=== PATIENT | male | born 1935 | race Caucasian/White ===

== ENCOUNTER → 2017-11-30 | Outpatient (CLI) | payer MEDICARE ==
[~2017-11-30] MED LIST: ATEN50; CLON.1 PO; COLC.6; FLUNOI; FURO40; LISI20; MOMENI; POTA8; RABE20; SIMV40; WARF10; WARF7.5
== END ==
LOC: LAB SHORT 16:53 → LAB 16:53
DX: L82.1 Other seborrheic keratosis (principal); L08.9 Local infection of the skin and subcutaneous tissue, unspecified
CPT/HCPCS: 87070; 87205

== ENCOUNTER 2020-03-25 13:13 | Inpatient (IN) | payer OTHER, MEDICARE ==
[~2020-03-25] VITALS: Ht 175.3 cm; Wt 106.4 kg
[~2020-03-25 13:13] MED LIST changes: -SIMV40; +SIMV40 PO
[2020-03-25] MEDS ORDERED: JANTOVEN5 MG PO (13:24)
[2020-03-25] MEDS ORDERED: WARF1 PO (13:25)
[2020-03-25] MEDS ORDERED: ROPINIROLE HCL0.5 MG PO (13:25)
[2020-03-25] MEDS ORDERED: ROPINIROLE HCL2 M1 PO (13:25)
[2020-03-25 13:30] LABS: Calcium, Ionized (POC) 1.14 mmol/L (1.10-1.46); Chloride (POC) 106 mmol/L (98-108); Creatinine (POC) 1.1 mg/dL (0.8-1.3); Glucose (ISTAT POC) 143 mg/dL (70-99); Hemoglobin (POC) 13.9 g/dL (13.5-17.5); Potassium (POC) 3.5 mmol/L (3.5-5.5); Sodium (POC) 139 mmol/L (135-148); Total CO2 (POC) 22 mmol/L (21-32)
[2020-03-25 13:39] LABS: BASOPHILS ABSOLUTE AUTO 0.05 K/mm3 (0.00-0.23); BASOPHILS PERCENT AUTO 1 % (0-2); EOSINOPHILS ABSOLUTE AUTO 0.05 K/mm3 (0.00-0.68); EOSINOPHILS PERCENT AUTO 1 % (0-6); Hematocrit 45.2 % (37.0-53.0); Hemoglobin 14.6 g/dL (13.5-17.5); IMMATURE GRAN ABSOLUTE AUTO 0.02 K/mm3 (0.00-0.10); IMMATURE GRAN PERCENT AUTO 0 % (0-1); LYMPHOCYTES ABSOLUTE AUTO 2.91 K/mm3 (0.84-5.20); LYMPHOCYTES PERCENT AUTO 35 % (21-46); MONOCYTES ABSOLUTE AUTO 1.11 K/mm3 (0.16-1.47); MONOCYTES PERCENT AUTO 13 % (4-13); Mean Corpuscular HGB 30.1 pg (26.0-34.0); Mean Corpuscular HGB Conc 32.3 g/dL (31.5-36.5); Mean Corpuscular Volume 93 fL (80-100); Mean Platelet Volume 10.5 fL (9.1-12.4); NEUTROPHILS ABSOLUTE AUTO 4.29 K/mm3 (1.96-9.15); NEUTROPHILS PERCENT AUTO 51 % (41-73); Platelet Count 203 K/mm3 (150-400); RDW Coefficient Variation 14.6 % (11.7-14.2); RDW Standard Deviation 50.4 fL (35.1-46.3); Red Blood Cell Count 4.85 M/mm3 (4.30-5.90); White Blood Cell Count 8.43 K/mm3 (4.00-11.30)
[2020-03-25] MEDS ORDERED: FURO20 PO (14:03)
[2020-03-25] MEDS ORDERED: ALLO300 PO (14:03)
[2020-03-25] MEDS ORDERED: EUTHYROX50 MCG PO (14:03)
[2020-03-25] MEDS ORDERED: OLME20 PO (14:03)
[2020-03-25] MEDS ORDERED: TAMS.4ER PO (14:04)
[2020-03-25] MEDS ORDERED: AMLO5 PO (14:04)
[2020-03-25 14:22] LABS: Influenza A, PCR Negative (NEGATIVE); Influenza B, PCR Negative (NEGATIVE); Resp Syncytial Virus, PCR Negative (NEGATIVE); SARS-Cov-2 (COVID-19) PCR, MMC Negative (NEGATIVE)
[2020-03-25 14:47] LABS: Albumin, Blood 3.5 g/dL (3.4-5.0); Albumin/Globulin Ratio 0.9 (0.8-1.8); Bun/Creatinine Ratio 21.8 (12.0-20.0); Calcium, Blood 8.8 mg/dL (8.5-10.1); Creatinine, Blood 1.33 mg/dL (0.60-1.20); Potassium, Blood 3.8 mmol/L (3.5-5.5); Total Protein, Blood 7.5 g/dL (6.4-8.2); Troponin I 0.044 ng/mL (0.000-0.040)
[2020-03-25 15:29] LABS: International Normalized Ratio 2.08; Prothrombin Time Results 21.4 Sec (9.7-11.5)
[2020-03-25] MEDS ORDERED: POTA10T PO (16:16)
--- NOTE | 2020-03-25 16:57 | NUR ---
Echocardiogram completed.
--- NOTE | 2020-03-25 17:34 | NUR ---
TRANSPORT TO ICU 1 PT ARRIVED TO ICU 1 AT 1455 FROM BOOK REVIEWER S/P STENT PLACEMENT FOR ADMIT WITH NSTEMI. PT DENIED ANY NAUSEA, PAIN, SHORTNESS OF BREATH. TR BAND ON RIGHT WRIST INFLATED WITH 14ML OF AIR; SITE IS WNL. PT IS ALERT AND ORIENTED AND CAN MAKE NEEDS KNOWN. AT BEDSIDE. HR 50-60'S; PT AND STATED THAT HE IS BRADYCARDIC AT BASELINE. DR MARQUEZ AND DR MUSE IN TO SEE PT. POST CATH EKG AND ECHO COMPLETED. TR BAND SITE CHECKED Q15MIN, SITE REMAINED WNL/CLEAR T/O SHIFT. REMOVING AIR FROM TR BAND NOW.
--- NOTE | 2020-03-25 18:53 | NUR ---
END OF SHIFT SUMMARY PT CONT TO BE ALERT AND ORIENTED AND IS ABLE TO MAKE NEEDS KNOWN. O2 SAT >94% ON RA. RIGHT RADIAL SITE IS WNL; THEIR IS NO AIR LEFT IN THE TR BAND, TO BE REMOVED IN AN HOUR. HR 50-60'S; PT STATES BEING BRADICARDIC AT BASELINE. BP STABLE. PT USES URINAL APPROPRIATLY. AFIBRILE. WILL REPORT TO PM RN WHEN AVAILABLE.
--- NOTE | 2020-03-25 21:09 | NUR ---
CARE ASSUMED 1900 PT A/O X 4. ABLE TO MAKE NEEDS KNOWN. PT APPEARS ANXIOUS/COOPERATIVE AND STATES THE BED IS UNCOMFORTABLE. SAT WITH PT TO DISCUSS HIS CONCERNS. PT WOULD LIKE MEDICATION TO HELP WITH SLEEP AND WOULD LIKE TO SPEAK TO HIS . CALL PLACED TO MELANIA DUTTA AND ORDERS RECIEVED FOR MELATONIN, ALBUTEROL, AND CPAP. PT STATES HAVING OCCASIONAL SOB DUE TO HIS ANXIETY AND WOULD LIKE TO USE ALBUTEROL IN CASE HE NEEDS IT. ALSO, PT USES CPAP TO SLEEP AT NIGHT. PT DENIES CP. TR BAND REMOVED FROM RIGHT WRIST AT 2042 AND CLEAR OPSITE DRESSING APPLIED, SITE C/D/I. WRIST IMMOBILIZER REMAINS IN PLACE. VSS, PT ON RA AND IN AFIB. PT RESTING IN BED WITH CPAP ON AND DID NOT WANT ALBUTEROL UPDRAFT DUE TO FEELING LESS ANXIOUS AFTER SPEAKING TO THIS NURSE FOR 30 + MINUTES ABOUT HIS CONCERNS. ALSO, PT SPOKE TO HIS VIA PHONE. ALL QUESTIONS/CONCERNS ADDRESSED.
[2020-03-26 05:02] LABS: Hematocrit 42.2 % (37.0-53.0); Hemoglobin 13.6 g/dL (13.5-17.5); Mean Corpuscular HGB 29.8 pg (26.0-34.0); Mean Corpuscular HGB Conc 32.2 g/dL (31.5-36.5); Mean Corpuscular Volume 93 fL (80-100); Mean Platelet Volume 10.6 fL (9.1-12.4); Platelet Count 213 K/mm3 (150-400); RDW Coefficient Variation 14.6 % (11.7-14.2); RDW Standard Deviation 50.4 fL (35.1-46.3); Red Blood Cell Count 4.56 M/mm3 (4.30-5.90); White Blood Cell Count 10.41 K/mm3 (4.00-11.30)
[2020-03-26 05:27] LABS: Anion Gap 5 mmol/L (6-16); Blood Urea Nitrogen 23 mg/dL (8-24); Bun/Creatinine Ratio 26.9 (12.0-20.0); CHOL/HDL RATIO 3.3; CO2, Blood 27 mmol/L (21-32); Calcium, Blood 8.8 mg/dL (8.5-10.1); Chloride, Blood 106 mmol/L (98-108); Cholesterol 147 mg/dL (50-200); Creatinine, Blood 0.86 mg/dL (0.60-1.20); Glomerular Filtration Rate >60 (60-); Glucose, Blood 123 mg/dL (70-99); HDL Cholesterol 45 mg/dL (>39); LDL/HDL RATIO 1.6; Low Density Lipoprotein Chol 73 mg/dL (0-110); Potassium, Blood 4.1 mmol/L (3.5-5.5); Sodium, Blood 138 mmol/L (136-145); Triglycerides 147 mg/dL (30-160); Very Low Density Lipoprot Chol 29 mg/dL (6-32)
[2020-03-26 05:30] LABS: International Normalized Ratio 1.76; Prothrombin Time Results 18.2 Sec (9.7-11.5)
--- NOTE | 2020-03-26 07:31 | NUR ---
SHIFT SUMMARY PT REMAINS A/O X 4. ABLE TO MAKE HIS NEEDS EASILY KNOWN. PT USED CPAP T/O THE NIGHT AND HR WOULD DECREASE TO 35 TO 40'S, SBP > 120'S. VSS T/O NIGHT. PT REMAINS IN AFIB. LUNG SOUNDS CLEAR AND BOWEL TONES ACTIVE. PT COMPLAINED OF BURNING WITH URINATION THAT HAS DECREASED T/O THE SHIFT. PT CUT HIS URETHRA WHILE USING THE URINAL AND A "PAPER CUT" SIZE CUT IS NOTED. PT IS NOT ACTIVELY BLEEDING FROM SITE BUT BLOOD IS PRESENT WHEN WIPING THE AREA. PT DENIES PAIN AT BASELINE BUT HAS PAIN WITH URINATION. PT REQUIRED THE USE OF ALBUTEROL UPDRAFT DUE TO "FEELING ANXIOUS AND FEELING SHORT OF BREATH," WITH GOOD EFFECT. PT WAS ABLE TO SITUP IN CHAIR FOR 1 HOUR TONIGHT AND STATES THE BED IS UNCOMFORTABLE. PT REUIQRED TWO PERSON ASSIST BUT DENIES CP OR SOB WHILE STANDING. WILL REPORT TO ONCOMING SHIFT.
[2020-03-26] MEDS ORDERED: ATOR80 PO (12:51)
[2020-03-26] MEDS ORDERED: ASPI81CH PO (12:51)
[2020-03-26] MEDS ORDERED: CLOP75 PO (12:52)
[2020-03-26] MEDS ORDERED: PANTOPRAZOLE SO20 M1 PO (12:52)
[2020-03-26] MEDS ORDERED: METF500 PO (12:53)
--- NOTE | 2020-03-26 14:45 | NUR ---
PT OUT OF ROOM VIA WHEELCHAIR, WITH , AND INFORMATION CLERK CASHIER STUDENT+INFORMATION CLERK CASHIER, @ ~2357
== END 2020-03-26 14:35 | disposition home health service (06) | DRG 247 ==
LOC: ER 13:13 → ICUW 13:36 → ICUE 15:12
PROVIDERS: Emergency Medicine; Family Medicine; ADMIT Internal Medicine Interventional Cardiology
PROC: 027034Z Dilation of Coronary Artery, One Artery with Drug-eluting Intraluminal Device, Percutaneous Approach (ICD-10-PCS; principal; 2020-03-25)
PROC: 4A023N7 Measurement of Cardiac Sampling and Pressure, Left Heart, Percutaneous Approach (ICD-10-PCS; 2020-03-25)
PROC: B2111ZZ Fluoroscopy of Multiple Coronary Arteries using Low Osmolar Contrast (ICD-10-PCS; 2020-03-25)
PROC: B240ZZ3 Ultrasonography of Single Coronary Artery, Intravascular (ICD-10-PCS; 2020-03-25)
PROC: 5A09357 Assistance with Respiratory Ventilation, Less than 24 Consecutive Hours, Continuous Positive Airway Pressure (ICD-10-PCS; 2020-03-25)
DX: I21.4 Non-ST elevation (NSTEMI) myocardial infarction (principal); I48.20 Chronic atrial fibrillation, unspecified; Z20.828 Contact with and (suspected) exposure to other viral communicable diseases; I25.10 Atherosclerotic heart disease of native coronary artery without angina pectoris; N40.0 Benign prostatic hyperplasia without lower urinary tract symptoms; I10 Essential (primary) hypertension; M19.90 Unspecified osteoarthritis, unspecified site; E11.9 Type 2 diabetes mellitus without complications; E78.5 Hyperlipidemia, unspecified; G47.30 Sleep apnea, unspecified; J44.9 Chronic obstructive pulmonary disease, unspecified; K21.9 Gastro-esophageal reflux disease without esophagitis; G25.81 Restless legs syndrome; Z79.899 Other long term (current) drug therapy; Z79.01 Long term (current) use of anticoagulants; Z88.0 Allergy status to penicillin; Z88.1 Allergy status to other antibiotic agents; Z88.8 Allergy status to other drugs, medicaments and biological substances
CPT/HCPCS: 0241U; 36415; 76937; 80047; 80048; 80053; 80061; 82947; 84484; 85014; 85025; 85027; 85347; 85610; 85730; 92978; 93005; 93010; 93306; 93454; 94640; 94660; 97116; 97161; 97165; 99152; 99153; 99285-25; A9270; A9270-GY; C1725; C1753; C1769; C1874; C1887; C1894; C9113; C9600; J0461; J1644; J2250; J2405; J3010; J7030; J7050; Q9967

== ENCOUNTER 2020-12-04 17:53 | Emergency (ER) | payer OTHER, MEDICARE ==
[~2020-12-04] VITALS: Ht 175.3 cm; Wt 108.9 kg
[~2020-12-04 17:53] MED LIST changes: +ALLO300 PO; +AMLO5 PO; +ASPI81CH PO; +ATOR80 PO; +CLOP75 PO; +EUTHYROX50 MCG PO; +FURO20 PO; +JANTOVEN5 MG PO; +METF500 PO; +OLME20 PO; +PANTOPRAZOLE SO20 M1 PO; +POTA10T PO; +ROPINIROLE HCL0.5 MG PO; +ROPINIROLE HCL2 M1 PO; +TAMS.4ER PO; +WARF1 PO
[2020-12-04 18:30] LABS: BASOPHILS ABSOLUTE AUTO 0.04 K/mm3 (0.00-0.23); BASOPHILS PERCENT AUTO 1 % (0-2); EOSINOPHILS ABSOLUTE AUTO 0.03 K/mm3 (0.00-0.68); EOSINOPHILS PERCENT AUTO 1 % (0-6); Hematocrit 40.5 % (37.0-53.0); Hemoglobin 13.4 g/dL (13.5-17.5); IMMATURE GRAN ABSOLUTE AUTO 0.02 K/mm3 (0.00-0.10); IMMATURE GRAN PERCENT AUTO 0 % (0-1); LYMPHOCYTES ABSOLUTE AUTO 1.25 K/mm3 (0.84-5.20); LYMPHOCYTES PERCENT AUTO 21 % (21-46); MONOCYTES ABSOLUTE AUTO 0.82 K/mm3 (0.16-1.47); MONOCYTES PERCENT AUTO 14 % (4-13); Mean Corpuscular HGB 30.4 pg (26.0-34.0); Mean Corpuscular HGB Conc 33.1 g/dL (31.5-36.5); Mean Corpuscular Volume 92 fL (80-100); Mean Platelet Volume 10.2 fL (9.1-12.4); NEUTROPHILS ABSOLUTE AUTO 3.71 K/mm3 (1.96-9.15); NEUTROPHILS PERCENT AUTO 63 % (41-73); Platelet Count 208 K/mm3 (150-400); RDW Coefficient Variation 15.4 % (11.7-14.2); Red Blood Cell Count 4.41 M/mm3 (4.30-5.90); White Blood Cell Count 5.87 K/mm3 (4.00-11.30)
[2020-12-04 19:54] LABS: Alanine Aminotransfer (ALT/SGP 32 U/L (12-78); Albumin, Blood 3.7 g/dL (3.4-5.0); Alk Phos 108 U/L (50-136); Anion Gap 5 mmol/L (6-16); Aspartate Aminotrans (AST/SGOT 28 U/L (12-37); Bilirubin, Total 1.3 mg/dL (0.1-1.0); Blood Urea Nitrogen 22 mg/dL (8-24); Bun/Creatinine Ratio 19.6 (12.0-20.0); CO2, Blood 27 mmol/L (21-32); Chloride, Blood 104 mmol/L (98-108); Creatinine, Blood 1.12 mg/dL (0.60-1.20); Globulin, Blood 3.7 g/dL (2.2-4.0); Glomerular Filtration Rate >60 (60-); Glucose, Blood 118 mg/dL (70-99); Potassium, Blood 3.9 mmol/L (3.5-5.5); Sodium, Blood 136 mmol/L (136-145); Total Protein, Blood 7.4 g/dL (6.4-8.2); Troponin I <0.015 ng/mL (0.000-0.040)
== END 2020-12-04 20:58 | disposition home or self-care (01) ==
LOC: ER 17:53
PROVIDERS: Physician Assistant
DX: R07.89 Other chest pain (principal); I10 Essential (primary) hypertension; J45.909 Unspecified asthma, uncomplicated
CPT/HCPCS: 36415; 71045; 80053; 83690; 84484; 85025; 93005; 93010; 99284-25

== ENCOUNTER → 2021-03-21 | Outpatient (CLI) | payer MEDICARE ==
[2021-03-21 16:30] LABS: BASOPHILS ABSOLUTE AUTO 0.05 K/mm3 (0.00-0.23); BASOPHILS PERCENT AUTO 1 % (0-2); EOSINOPHILS ABSOLUTE AUTO 0.01 K/mm3 (0.00-0.68); EOSINOPHILS PERCENT AUTO 0 % (0-6); Hematocrit 41.5 % (37.0-53.0); Hemoglobin 13.7 g/dL (13.5-17.5); IMMATURE GRAN ABSOLUTE AUTO 0.02 K/mm3 (0.00-0.10); IMMATURE GRAN PERCENT AUTO 0 % (0-1); LYMPHOCYTES ABSOLUTE AUTO 1.15 K/mm3 (0.84-5.20); LYMPHOCYTES PERCENT AUTO 13 % (21-46); MONOCYTES ABSOLUTE AUTO 1.59 K/mm3 (0.16-1.47); MONOCYTES PERCENT AUTO 18 % (4-13); Mean Corpuscular HGB 30.5 pg (26.0-34.0); Mean Corpuscular Volume 92 fL (80-100); Mean Platelet Volume 10.4 fL (9.1-12.4); NEUTROPHILS PERCENT AUTO 68 % (41-73); Platelet Count 227 K/mm3 (150-400); RDW Coefficient Variation 14.2 % (11.7-14.2); RDW Standard Deviation 48.4 fL (35.1-46.3); Red Blood Cell Count 4.49 M/mm3 (4.30-5.90); White Blood Cell Count 8.82 K/mm3 (4.00-11.30)
== END | disposition home or self-care (01) ==
LOC: LAB SHORT 15:43 → LAB 15:43
PROVIDERS: Nurse Practitioner Family
DX: M25.532 Pain in left wrist (principal)
CPT/HCPCS: 84550; 85025

== ENCOUNTER → 2021-07-03 | Outpatient (CLI) | payer MEDICARE | LOC: LAB SHORT 18:25 | DX: N39.0 Urinary tract infection, site not specified (principal); R30.9 Painful micturition, unspecified; R31.9 Hematuria, unspecified | CPT/HCPCS: 87077; 87086; 87186 ==

== ENCOUNTER 2021-10-07 14:58 | Emergency (ER) | payer OTHER, MEDICARE ==
[~2021-10-07] VITALS: Ht 177.8 cm; Wt 104.3 kg
[2021-10-07 15:44] LABS: BASOPHILS ABSOLUTE AUTO 0.07 K/mm3 (0.00-0.23); BASOPHILS PERCENT AUTO 1 % (0-2); EOSINOPHILS ABSOLUTE AUTO 0.07 K/mm3 (0.00-0.68); EOSINOPHILS PERCENT AUTO 1 % (0-6); Hematocrit 37.3 % (37.0-53.0); Hemoglobin 12.4 g/dL (13.5-17.5); IMMATURE GRAN ABSOLUTE AUTO 0.01 K/mm3 (0.00-0.10); IMMATURE GRAN PERCENT AUTO 0 % (0-1); LYMPHOCYTES ABSOLUTE AUTO 1.73 K/mm3 (0.84-5.20); LYMPHOCYTES PERCENT AUTO 28 % (21-46); MONOCYTES ABSOLUTE AUTO 0.92 K/mm3 (0.16-1.47); MONOCYTES PERCENT AUTO 15 % (4-13); Mean Corpuscular HGB 30.8 pg (26.0-34.0); Mean Corpuscular HGB Conc 33.2 g/dL (31.5-36.5); Mean Corpuscular Volume 93 fL (80-100); Mean Platelet Volume 10.2 fL (9.1-12.4); NEUTROPHILS ABSOLUTE AUTO 3.33 K/mm3 (1.96-9.15); NEUTROPHILS PERCENT AUTO 54 % (41-73); Platelet Count 273 K/mm3 (150-400); RDW Coefficient Variation 14.3 % (11.7-14.2); RDW Standard Deviation 48.6 fL (35.1-46.3); Red Blood Cell Count 4.02 M/mm3 (4.30-5.90); White Blood Cell Count 6.13 K/mm3 (4.00-11.30)
[2021-10-07 15:59] LABS: Albumin/Globulin Ratio 0.8 (0.8-1.8); Bilirubin, Total 0.9 mg/dL (0.1-1.0); Bun/Creatinine Ratio 25.5 (12.0-20.0); Calcium, Blood 8.8 mg/dL (8.5-10.1); Creatinine, Blood 0.83 mg/dL (0.60-1.20); Globulin, Blood 3.8 g/dL (2.2-4.0); Potassium, Blood 3.8 mmol/L (3.5-5.5); Total Protein, Blood 6.8 g/dL (6.4-8.2)
[2021-10-07 16:10] LABS: Source, Urine Clean Catch
[2021-10-07 16:22] LABS: Appearance, Urine Clear (Clear); Bilirubin, Urine Neg (Neg); Blood, Urine Neg (Neg); Color, Urine Yellow (P-Yellow); Glucose Qualitative, Urine Neg (Neg); Ketones, Urine Neg (Neg); Leukocyte Esterase, Urine Neg (Neg); Nitrite, Urine Neg (Neg); Protein, Urine Neg (Neg); Urobilinogen, Urine 1+ (Normal)
== END 2021-10-07 19:24 | disposition home or self-care (01) ==
LOC: ER 14:58
PROVIDERS: Physician Assistant
DX: R26.81 Unsteadiness on feet (principal); I10 Essential (primary) hypertension; E11.9 Type 2 diabetes mellitus without complications; I25.10 Atherosclerotic heart disease of native coronary artery without angina pectoris; K21.9 Gastro-esophageal reflux disease without esophagitis; J44.9 Chronic obstructive pulmonary disease, unspecified; N40.0 Benign prostatic hyperplasia without lower urinary tract symptoms; Z79.01 Long term (current) use of anticoagulants; Z79.899 Other long term (current) drug therapy; Z79.82 Long term (current) use of aspirin; Z79.84 Long term (current) use of oral hypoglycemic drugs
CPT/HCPCS: 36415; 70450; 80053; 81003; 85025; 99285-25

== ENCOUNTER 2021-10-17 00:38 | Inpatient (IN) | payer OTHER ==
[~2021-10-17] VITALS: Ht 177.8 cm; Wt 95.2 kg
[~2021-10-17 00:38] MED LIST changes: +ALLO100 PO; -ALLO300 PO; +PANT40 PO; -PANTOPRAZOLE SO20 M1 PO
[2021-10-17 01:10] LABS: BASOPHILS ABSOLUTE AUTO 0.08 K/mm3 (0.00-0.23); BASOPHILS PERCENT AUTO 2 % (0-2); EOSINOPHILS ABSOLUTE AUTO 0.09 K/mm3 (0.00-0.68); EOSINOPHILS PERCENT AUTO 2 % (0-6); Hematocrit 36.6 % (37.0-53.0); Hemoglobin 12.2 g/dL (13.5-17.5); IMMATURE GRAN ABSOLUTE AUTO 0.01 K/mm3 (0.00-0.10); IMMATURE GRAN PERCENT AUTO 0 % (0-1); LYMPHOCYTES ABSOLUTE AUTO 1.69 K/mm3 (0.84-5.20); LYMPHOCYTES PERCENT AUTO 32 % (21-46); MONOCYTES ABSOLUTE AUTO 0.85 K/mm3 (0.16-1.47); MONOCYTES PERCENT AUTO 16 % (4-13); Mean Corpuscular HGB 30.8 pg (26.0-34.0); Mean Corpuscular HGB Conc 33.3 g/dL (31.5-36.5); Mean Corpuscular Volume 92 fL (80-100); Mean Platelet Volume 10.1 fL (9.1-12.4); NEUTROPHILS ABSOLUTE AUTO 2.57 K/mm3 (1.96-9.15); NEUTROPHILS PERCENT AUTO 49 % (41-73); Platelet Count 216 K/mm3 (150-400); RDW Coefficient Variation 14.1 % (11.7-14.2); RDW Standard Deviation 48.1 fL (35.1-46.3); Red Blood Cell Count 3.96 M/mm3 (4.30-5.90); White Blood Cell Count 5.29 K/mm3 (4.00-11.30)
[2021-10-17 01:32] LABS: Albumin, Blood 3.1 g/dL (3.4-5.0); Albumin/Globulin Ratio 0.9 (0.8-1.8); Bilirubin, Total 0.9 mg/dL (0.1-1.0); Bun/Creatinine Ratio 24.6 (12.0-20.0); Calcium, Blood 8.9 mg/dL (8.5-10.1); Creatinine, Blood 0.85 mg/dL (0.60-1.20); Globulin, Blood 3.5 g/dL (2.2-4.0); Potassium, Blood 3.3 mmol/L (3.5-5.5); Total Protein, Blood 6.6 g/dL (6.4-8.2)
[2021-10-17 01:40] LABS: Source, Urine Clean Catch
[2021-10-17 01:42] LABS: Bilirubin, Urine Neg (Neg); Blood, Urine Neg (Neg); Glucose Qualitative, Urine Neg (Neg); Ketones, Urine Neg (Neg); Leukocyte Esterase, Urine Neg (Neg); Nitrite, Urine Neg (Neg); Protein, Urine Neg (Neg); Urobilinogen, Urine NORM (Normal)
[2021-10-17 01:43] LABS: Appearance, Urine Clear (Clear); Color, Urine Pale Yellow (P-Yellow)
[2021-10-17 04:41] LABS: Thyroid Stimulating Hormone 4.42 uIU/mL (0.360-4.800)
--- NOTE | 2021-10-17 18:31 | NUR ---
1715 RECEIVED PT TO RM 313 VIA DWAYNE FROM ER. SLIDE TX TO BED. PT ADMITTED FOR ACUTE ENCEPHALOPATHY. RECEIVED REPORT FROM BERNY LOPES. PT TO ER D/T INCREASED AGITATION, INCREASED CONFUSION; AMS. PT VERY WEAK, BASELINE AT HOME USING A FWW AND W/C TO GET AROUND. PT SOMEWHAT ORIENTED DURING ADMISSION ASSESSMENT, AND REPORTED THAT HE WAS CONFUSED TO WHY HE WAS HERE. PT'S DID NOT COME UP WITH HIM TO PROVIDE ANY FURTHER INFORMATION. BED ALARM ON FOR SAFETY. CALL LT IN REACH.
--- NOTE | 2021-10-18 04:38 | NUR ---
SHIFT SUMMARY ADMITTED FOR ACUTE ENCEPHALOPATHY. FULL CODE. DIETER VEST IN PLACE FOR HIGH FALL RISK. IMPULSIVE, FREQUENTLY ATTEMPTS TO EXIT BED. HX OF FALLS. HX OF DEMENTIA, REPORTED COMBATIVE AT TIMES. CONFUSED. REGULAR DIET. ON RA. URINARY: HE EXPERIENCES FREQUENCY AND URGENCY. YELLS OUT RATHER THAN USES CALL BUTTON. TYLENOL ORDERED PRN THIS SHIFT FOR RIGHT HIP PAIN. A&O X SELF & FAMILY ONLY. HE DID NOT SLEEP WELL THIS SHIFT, WAKING FREQUENTLY
[2021-10-18 05:35] LABS: BASOPHILS ABSOLUTE AUTO 0.08 K/mm3 (0.00-0.23); BASOPHILS PERCENT AUTO 2 % (0-2); EOSINOPHILS ABSOLUTE AUTO 0.08 K/mm3 (0.00-0.68); EOSINOPHILS PERCENT AUTO 2 % (0-6); Hematocrit 39.7 % (37.0-53.0); Hemoglobin 12.8 g/dL (13.5-17.5); IMMATURE GRAN ABSOLUTE AUTO 0.01 K/mm3 (0.00-0.10); IMMATURE GRAN PERCENT AUTO 0 % (0-1); LYMPHOCYTES ABSOLUTE AUTO 1.62 K/mm3 (0.84-5.20); LYMPHOCYTES PERCENT AUTO 32 % (21-46); MONOCYTES ABSOLUTE AUTO 0.84 K/mm3 (0.16-1.47); MONOCYTES PERCENT AUTO 17 % (4-13); Mean Corpuscular HGB 30.3 pg (26.0-34.0); Mean Corpuscular HGB Conc 32.2 g/dL (31.5-36.5); Mean Corpuscular Volume 94 fL (80-100); NEUTROPHILS ABSOLUTE AUTO 2.45 K/mm3 (1.96-9.15); NEUTROPHILS PERCENT AUTO 48 % (41-73); Platelet Count 209 K/mm3 (150-400); RDW Standard Deviation 48.6 fL (35.1-46.3); Red Blood Cell Count 4.22 M/mm3 (4.30-5.90); White Blood Cell Count 5.08 K/mm3 (4.00-11.30)
[2021-10-18 06:42] LABS: Albumin, Blood 3.1 g/dL (3.4-5.0); Albumin/Globulin Ratio 0.8 (0.8-1.8); Bilirubin, Total 1.4 mg/dL (0.1-1.0); Bun/Creatinine Ratio 25.1 (12.0-20.0); Calcium, Blood 8.8 mg/dL (8.5-10.1); Creatinine, Blood 0.8 mg/dL (0.60-1.20); Globulin, Blood 3.7 g/dL (2.2-4.0); Potassium, Blood 3.6 mmol/L (3.5-5.5); Total Protein, Blood 6.8 g/dL (6.4-8.2)
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
--- NOTE | 2021-10-19 06:39 | NUR ---
SHIFT SUMMARY PATIENT ALERT AND ORIENTED TO SELF. WAS VERY AGITATED AND IRRITABLE AT TIMES AND REQUIRED PRN MEDICATION. PATIENT REFUSED ORAL PRN SEROQUEL AND RECEIVED IM ZYPREXA DUE TO PATIENT REFUSING CARE AND THREATENING STAFF. NO OTHER ISSUES NOTED OVERNIGHT. PATIENT CONTINUES IN DIETER AND SOFT FOUR POINT RESTRAINTS. CALL LIGHT WITHIN REACH. REPORT GIVEN TO ONCOMING RN.
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
--- NOTE | 2021-10-19 16:02 | NUR ---
Changed pt's code status to DNR at 's wishes. [facility] checked at both the [facility] and [facility], and no POLST or AD records available. Pt is unable to make his needs or wants known at this time.
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
--- NOTE | 2021-10-20 04:09 | NUR ---
SHIFT SUMMARY A/O TO SELF ONLY. 2P MAX ASSIST FOR CHANGES/REPOSITIONING. PT CAN BE AGGRESSIVE TOWARDS STAFF. MUMBLING INCOHERENTLY/YELLING OUT T/O SHIFT. C/O BACK PAIN, MEDICATED PER EMAR. VSS, NO ACUTE CHANGES AT THIS TIME. BED IN LOWEST POSITION WITH CALL LIGHT IN PLACE. WILL CONTINUE TO MONITOR AND REPORT TO ONCOMING RN.
[2021-10-20 05:45] LABS: Albumin, Blood 3.1 g/dL (3.4-5.0); Albumin/Globulin Ratio 0.8 (0.8-1.8); Bilirubin, Total 1.6 mg/dL (0.1-1.0); Bun/Creatinine Ratio 23.6 (12.0-20.0); Calcium, Blood 9.3 mg/dL (8.5-10.1); Creatinine, Blood 0.81 mg/dL (0.60-1.20); Globulin, Blood 3.8 g/dL (2.2-4.0); Potassium, Blood 3.5 mmol/L (3.5-5.5); Total Protein, Blood 6.9 g/dL (6.4-8.2)
--- NOTE | 2021-10-20 17:50 | NUR ---
DAY SHIFT SUMMARY 86 YR OLD CONFUSED PT WITH ACUTE ENCEPHALOPATHY. LUQUE INTACT/PATENT AND DRAINING VIA GRAVITY. A/O TO SELF, MEDS WHOLE IN APPLESAUCE, RA. RESTRAINTS DUE TO AGGRESSIVE BEHAVIOUR AND CONFUSION. FREQUENT ROUNDING. ON CAMERA MONITORING. CALL LIGHT WITHIN REACH.
--- NOTE | 2021-10-21 04:17 | NUR ---
SHIFT SUMMARY ADMITTED FOR ACUTE ENCEPHALOPATHY. DNR CODE. PLAN IS FOR MEMORY CARE PLACEMENT. LUQUE IN PLACE. RESTRAINTS IN PLACE. RX WHOLE W/APPLESAUCE. PRN SEROQUEL GIVEN FOR AGITATION. ON RA. INCONTINENT. CONFUSED. A&O X SELF AND FAMILY ONLY. REGULAR DIET. [facility] PT.
--- NOTE | 2021-10-21 12:06 | NUR ---
Spiritual Care Visit. Pt. is in bed and welcomed my visit. Pt. is unsettled as to why he is in the hospital. Facilitated a life review. Pt. displayed evidence of loneliness. Prayed with Pt., and Pt. prayed as well. Established further rapport, and Pt. became cathartic when he verbalized the loss of his grandson in a car accident. Listened therputically with a calming presence. Pt. displayed evidence of love and pride for his grandson and son. Pt. verbalized gratitude for the spiritual care visit.
--- NOTE | 2021-10-21 14:56 | NUR ---
Spiritual Care Referral - from hospital Physical Plant Employee Pt. had requested this sow farm barn technician to return. Pt. displays evidence of lonliness. The Pt. shares life story in more detail. The Pt. seems to be more "clear-thinking" this afternoon. Pt. verbalizes the importance of the spiritual care he has received. Prayed with Pt. and he prayed for me. Pt. verbalized more stories before he verbalized gratitude for the spiritual care visit.
--- NOTE | 2021-10-21 18:32 | NUR ---
SUMMARY- PT'S MENTATION IMPROVED TODAY. THIS AM STARTED OFF IRRITABLE AND THREATENING STAFF WHEN AWAKENED. REFUSED BREAKFAST AND JUST SLEPT. IMPROVED AFTER SLEEPING UNTIL LUNCH AND APPOLOGIZED TO STAFF FOR POOR BEHAVIOR. HAS BEEN CALM AND COOPERATIVE SINCE LUNCHTIME, FED SELF LUNCH AND DINNER WITH SET UP. SITS UP IN BED FOR MEALS. DEPENDANT IN CARE, TURNED ROUTINE. LUQUE CARE. HAD LG AMOUNT OF PULULANT EXUDATE COMING FORM HEAD OF PENUS AROUND LUQUE CATH. IRRICATED AROUND AREA WITH SALINE. L HAND SWOLLEN AFTER RN FOUND TIGHT COBAN CONFINING HAND AND HAD IT VERY SWOLLEN AND SORE. APPLIED ICE PACK. AND DAUGHTER IN TO VISIT PT A FEW HOUR THIS AFTERNOON. TIME STUDY TECHNOLOGIST SPOKE WITH FAMILY AND GAVE THEM OPTIONS FOR PT'S DISCHARGE, [facility] CAN BE A LONG WAITING LIST. WILL REPORT TO POLLY RN.
--- NOTE | 2021-10-22 06:01 | NUR ---
SHIFT SUMMARY: PATIENT IS ALERT AND ORIENTED TO SELF AND . VSS, NO COMPLIANTS OF PAIN OR DISCOMFORT. CONTINUES TO ATTEMPT TO PULL LUQUE, BRIEF AND PAJAMA PANTS ARE COVERING TO PREVENT ACCESS. ALSO ATTEMPTING TO GET OOB. PATIENT ONLY HAD OCCASSIONAL CAT NAPS THIS SHIFT. PRN SEROQUEL WAS GIVEN FOR RESTLESSNESS, AGGITATION AND INSOMNIA. PATIENT HAD POOR EFFECT FROM PRN.
--- NOTE | 2021-10-22 17:27 | NUR ---
SUMMARY- PT ALERT TO SELF AND FAMILY. FORGETFUL. ABLE TO GET PT OUT OF VEST RESTRAINT AT 1000 TODAY. HAS BEED EASILY DIRECTABLE AND COOPERATIVE WITH STAFF. CALM AND FOLLOWS COMMAND PHYSICALLY ABLE. GOT UP TO CHAIR WITH PT AND OT TODAY. OT STATES SHE WOULD RECOMMEND SNF FOR PT. HERE TO VISIT FOR A FEW HOURS THIS AFTERNOON. INFORMED HER OF THE THERAPY'S RECOMMENDATIONS. PT TOLERATING FOOD AND FLUIDS. HAD A LG SOFT BM AFTER LAX THIS AM. PT COMPLAINING THAT LUQUE IS BURNING, WILL F/U WITH DR BLANDON REQUARDING LUQUE.
--- NOTE | 2021-10-22 22:24 | NUR ---
AGGITATION: PATIENT REFUSED HS MEDICATIONS AND REQUESTED TO SPEAK WITH . PATIENT IS CONFUSED AND HAVING PARANIOD DELUSIONS. SPEAKING WITH DID NOT CALM HIM. OFFERING STAFF $50,000 TO ASSIST HIM IN LEAVING THE HOSPITAL. CAMERA MONITOR CALLED TO REPORT PATIENT TUCKED A PENCIL INTO HIS GAIT BELT. SECURITY, CODING COMPLIANCE AUDITOR AND ANOTHER RN CAN TO PROVIDED ASSISTANCE TO ADMINISTER IM ZYPREXA. PATIENT WOULD NOT COMPLY WITH DIRECTION TO PUT THE PENCIL DOWN AND WAS AGGRESSIVE AND THREATENING TO STAFF. SAYING HE WOULD USE FORCE TO RESIST ASSISTANCE TO THE BED AND APPLICATION OF DIETER. DR DAVIS WAS CALLED. ORDER FRO DIETER VEST WAS OBTAINED. MED WAS GIVEN, WHILE SECURITY AND ONE RN RESTRIANED PATIENT. PATIENT THEN WAS ASSISTED INTO THE BED. DIETER VEST WAS APPLIED WITHOUT FURTHER RESISTANCE.
--- NOTE | 2021-10-23 05:29 | NUR ---
SHIFT SUMMARY: PATIENT HAD GOOD EFFECT FROM HS ZYPREXA AND HS SEROQUEL AND HAS BEEN SLEEPING SINCE. INC. OF URINE AT TIMES. WAS DIRECTABLE AND COOPERATIVE WITH STAFF THIS SHIFT.
--- NOTE | 2021-10-23 09:00 | NUR ---
PT ALERT TO SELF AND FAMILY, OCCATIONALLY IS AGRESSIVE. IN POSY VEST. ATTEMPTED TO USE PENCIL WEAPON YESTERDAY. AT THIS TIME HE IS PLEASANT COOP. HAS REQUESTED HIS PHONE SLATE HANDLER AND COMPUTER FROM HOME SO IS CONNECTED TO FAMILY. DOES NOT APPEAR TO BE AGRESSIVE AT THIS TIME. 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 THANKED FOR HIS SERVICE. H/R REG, NO MURMUR NOTED. NO TELE. LUNGS CLEAR, RESP EASY, UNLABORED. ON R/A. BT X4 LAST BM YEST PER PT. VOIDS PER BATHROOM. OFTEN INCONT. BED IN LOW POSITION, CALL LITE IN REACH, BED ALARM ON FOR SAFETY
--- NOTE | 2021-10-23 09:02 | NUR ---
HOLD B/P MEDS PER DR MATHIS PER VS
--- NOTE | 2021-10-23 12:02 | NUR ---
Spiritual Care Visit. Pt. is awake and sitting up in chair and welcomed my visit. Pt. quickly verbalized regret for his behavior the previous day, and verbalized how he had threatened staff and required restraint. Listened theaputically and continued to build rapport. Pt. verbalized how he had visited the [facility] in the past and how he would like me to try and contact the shinto for a pastoral visit. This prosthetics lab technician agreed to try. OT arrived so this prosthetics lab technician excused himself. Immediately afterward contact [facility], and left drafter geological with the request and the room number.
--- NOTE | 2021-10-23 15:14 | NUR ---
H/R 53. IMPROVED FROM THIS AM. HELD AM BP MEDS. HR IMPROVING, NO CALL TO PT ASYMTOMATIC. SITING IN CHAIR. BED ALARM ON FOR SAFETY
--- NOTE | 2021-10-23 15:16 | NUR ---
DR ORDERING EKG AND TELE. CALLING [facility] FOR [facility]
--- NOTE | 2021-10-23 17:09 | NUR ---
CALLED DR MATHEW RESULTS FOR EKG. AFIB AT 63. AND PT CONTINUES ON TELE FORNOW.
--- NOTE | 2021-10-23 17:11 | NUR ---
MANAGER CALL REPORTED PT HAD SEVERAL VOIDS TODAY, HOWEVER, THIS TIME HAD SOMEM RED BLOOD CLOTS IN SMALL AMT OF URINE. SPOKE TO PT, STATES HE PULLED ON LUQUE WHEN WAS IN YESTERDAY. STATES IT DID HURT. THEN HAD LUQUE D/C YESTEDAY. THEN STATES THOUGHT MAYBE SOMEONE ASSISTING HIM TO BATHROOM MAY HAVE STRETCHED IT. CALLED YONATAN. I HAD MANAGER CALL BLADDER SCAN, 450 CC. CALLED . SHE SAYS TO HAE HIM TRY URINATE COOUPLE TIMES, OVER NEXT 2 HRS. THEN SCAN AND IF OVER 450CC STRAIGHT CATH. PRN. I WILL PLACE ORDERS
--- NOTE | 2021-10-23 17:43 | NUR ---
EXPLAINED TO PT WE WILL HAVE HIM ATTEMPT TO URINATE COUPLE TIMES OVER NEXT 2 HRS. IF UNSUCCESSFUL CAN STRAIGHT CATH. DISCUSSED THIS WITH AT BEDSIDE. HE SEEMS TO UNDERSTAND. STEWARD RACETRACK IN TO DISCUSS DISCHARGE TO SNF. WILL REVIEW TOMORROW. PT SEEMS SOME AGITATED. BUT STILL IN CONTROL OF SELF. BED IN LOW POSITION, CALLLITE IN REACH. BED ALARM ON FOR SAFETY
--- NOTE | 2021-10-23 18:36 | NUR ---
PT BECOMING AGITATED. CALLED , HE GOT MAD AND THREW PHONE ON FLOOR AFTER LEAVING MESSAGE ON PHONE. PHONE SCREEN SHATTERED. DOES NOT APPEAR TO WORK. HE DID FINALLY AGREE TO TAKE A PRN SEROQUEL.
--- NOTE | 2021-10-23 19:23 | NUR ---
PT HAD IMPROED MUCH T/O MORNING, SO D/C VEST RESTRAINT AFTER 1300. PT HAD APPOLOGIZED PROFUSELY ABOUT PREVIOUS ANGER. EXPLAINIED HE IS FORGIVEN AND IT IS BEHIND HIM. EXPLAINED HE SHOULD CONTINUE TO REMAIN HIS PLEASANT SELF HE IS QUITE ENJOYABLE. 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 PT HAD SOME BLOD CLOTS IN URINE THIS AFT. BLADDER SCAN SHOWED ABOUT [address] ABOUT THIS. PREVOUSLY NOTED. WE WERE TO WATCH TO SEE IF URINATED IN NEXT 2 HRS. HE URINATED 300 WITH NO BLOOD NOTED. ALSO DR ORDERED EKG AND TELE TO OBSERVE HEART. PT PRESENTLY IN CONTROLLED AFIB AT ABOUT 62. NOTIFIED. NO NEW ORDERS. PT BECAME QUITE AGITATED THIS ALEXANDRA. HE CALLED AND LEFT HOSTILE MESSAGE THEN SLAMMED THREW HIS PHONE ON FLOOR. THIS SHATTERED THE GLASS. APPEARS BROKEN. EXPLAINED THIS NOT ACCEPTABLE BEHAVIOR. HE STATES HIS LEFT TO CHEAT ON HIM. I WAS ABLE TO GET HIM TO TAKE A SEROQUEL PRN AFTER AND HE IS A LITTLE CALMER. REPORT OF ACTIVITIES GIVEN TO MAX LOPES. SITTING IN CHAIR. CHAIR ALARM ON FOR SAFETY. CALL LITE IN REACH
--- NOTE | 2021-10-24 02:58 | NUR ---
PT BECOMING INCREASINGLY ANXIOUS AND ATTEMPTING TO GET UP SAYING HE WANTED TO LEAVE. REDIRECTED INTO BED AND MEDICATED WITH PRN IM ZYPREXA PT IS REFUSING ORAL MEDICATION AND BECOMING SLIGHTLY AGITATED WITH STAFF.
--- NOTE | 2021-10-24 05:04 | NUR ---
PCA SUMMARY ADMITTED FOR ACUTE ENCEPHALOPATHY. HE IS A DNR. THE PATIENT IS WAITING FOR PLACEMENT [facility]. HIS TELE WAS REMOVED THIS SHIFT THERE WERE NO EVENTS AND HE REFUSED TO KEEP THE WIRES ON. THE PATIENT IS A 1PA WITH FWW AND USES THE URINAL WITH ASSISTANCE. HE IS ALERT AND ORIENTED TO HIMSELF AND ONLY, THOUGH HE BELIEVES HIMSELF TO BE [id number]. HE HAS BEEN VOIDING 400-600 EVERY FEW HOURS WITH ORANGE-YELLOW URINE BUT DOES TAKE SOME TIME TO GET IT STARTED. HE BEGAN TO GET SLIGHTLY AGITATED WITH CONTINUED REDIRECTION BACK INTO BED EVERY 20 MINUTES AND WAS MEDICATED WITH IM ZYPREXA AND HAS BEEN RESTING. HE APPEARS MOSTLY RESTLESS AT NIGHT AND ADMITS TO RESTLESS LEG SYDROME AND FEELING LIKE HE CAN'T GET COMFORTABLE. HE IS INTERMITTENTLY FLIRTING WITH STAFF WHEN NOT UPSET WITH DIRECTIONS.
--- NOTE | 2021-10-24 10:08 | NUR ---
PT PLEASANT THIS AM. NOT RECALLING ISSUES OF LAST NITE. DID GIVE ME DATE, PRESIENT, AGE, OCCUPATION. SOME RESERVED THIS AM. HR IRREG, NO MURMUR NOTED. HX AFIB. NO TELE. LUNGS CLEAR, RESP EASY, UNLABORED. ON R/A. BT X4 LAST BM NOT KNOWN BY PT. VOIDS EITHER STANDING WITH URINAL OR 1 ASST FWW TO BATHROOM. NO RESTRAINTS. BED IN LOW POSITION, CALL LITE IN REACH, BED ALARM ON FOR SAFETY
--- NOTE | 2021-10-24 16:16 | NUR ---
and her sister and her son, wilmar in room this aft for several hours. discussed events of last nite. pt still unsure of what happened last nite. with his permission, did discuss this with them all ini front of pt. he agreed to take the seroquel to assist him to rest and stay more in control this elena. pt took without issue.
--- NOTE | 2021-10-24 17:57 | NUR ---
PT MOSTLY PLEASANT CND COOP TODAY. HE DID BECOME SLIGHTLY AGITATED THIS AFT ABOUT 4PM. TALKED TO HIM RE TAKING MED FOR CALMING AND KEEPING HIM FEELING MORE IN CONTROL. HE AGREED TO TAKE. DID AT 1600. OUR THOUGHT WITH FAMILY WA TO TAKE PRIOR TO HIM BECOMING OUT OF CONTROL. SEEMS TO BE WORKING AT THIS TIME. 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 HE ABLE TO SHOW THIS TO ME. HOPE IS TO REMIND HIM IS FAMILY WAS HERE AND HE IS ABLE TO BETTER ABLE TO STAY IN CONTROL. BED IN LOW POSITION, CALL LITE IN REACH. BED ALARM ON FOR SAFETY
--- NOTE | 2021-10-25 04:04 | NUR ---
SHIFT SUMMARY PT AWAKE MOST OF THE EVENING. FINALLY FALLING ASLEEP APPROX 0300. VERY BUSY. PLEASANTLY CONFUSED, REDIRECTABLE. FREQUENTLY MOVING AROUND IN THE BED OR ATTEMPTING TO GET UP. PT VERY RESTLESS. IM ZYPREXA ADMINISTERED WITH LITTLE EFFECT. PT APPEARED MORE TIRED BUT CONTINUED WITH FREQUENT MOVEMENT. PT HAVING SENSATION TO VOID FOR SEVERAL HOURS BUT UNABLE TO VOID. BLADDER SCAN DONE READING 737 MLS. STRAIGHT CATH'D PT WITH 600 MLS OUT. PT REPORTS PAIN, GENERALIZED BUT MORE SEVERE TO R HIP/LEG. MEDICATED X 1 W/ TYLENOL. PT SLEEPING AT THIS TIME. VITAL SIGNS STABLE.
--- NOTE | 2021-10-25 07:45 | NUR ---
ASSUMED CARE: PT RESTING AT THIS TIME. BED ALARM ON. NO ACUTE NEEDS OR CONCERNS.
--- NOTE | 2021-10-25 17:38 | NUR ---
SHIFT SUMMARY: PT HAS REMAINED OUT OF RESTRAINTS ALL SHIFT. PLEASANT AND COOPERATIVE, UP IN CHAIR FOR MEALS. FAMILY CAME TO VISIT FOR A FEW HOURS. PT WAS PROVIDED COLORING SHEETS TO DRAW ON PER REQUEST. NO FURTHER NEEDS OR CONCERNS AT THIS TIME.
--- NOTE | 2021-10-26 04:46 | NUR ---
SHIFT SUMMARY PT PLEASANTLY CONFUSED. AWAKE ALMOST THE ENTIRE SHIFT. MAYBE SLEEPING SEVERAL MINUTES. VOIDED WELL THIS EVENING. SITTING UP IN THE CHAIR AT THIS TIME. FREQUENTLY ATTEMPTING TO GET OUT OF BED BUT REDIRECTABLE. TOOK HIS PILLS WELL. VITAL SIGNS STABLE. PT AWAITING PLACEMENT.
--- NOTE | 2021-10-26 18:20 | NUR ---
SHIFT SUMMARY PATIENT A&O TO SELF AND FAMILY. 1PA WITH WALKER AND GB TO RESTROOM. DOES NOT USE CALL LIGHT AND WILL ATTEMPT TO GET UP BY HIMSELF. FAMILY AT BEDSIDE PART OF SHIFT. NO AIGNIFICANT EVENTS. VSS. WILL CONTINUE TO MONITOR.
--- NOTE | 2021-10-27 04:40 | NUR ---
SHIFT SUMMARY A/O TO SELF, AGITATED AND AGRESSIVE WITH STAFF DURING BEGINNING OF SHIFT. PARANOID, ATTEMPTING TO HIDE SMALL OBJECTS WEAPONS. SECURITY CALLED TO ASSIST PT TO BED, DIETER RESTRAINT AND 4 SIDE RAILS ORDERED FOR SAFETY. CONTINUED TO BE RESTLESS T/O NIGHT. VSS, BED IN LOWEST POSITION WITH CALL LIGHT IN REACH. WILL CONTINUE TO MONITOR AND REPORT TO ONCOMING RN.
--- NOTE | 2021-10-27 15:00 | NUR ---
Spiritual Care Visit. Pt. is sitting up in his recliner and wlcomes my visit. Pts. Spouse and YOAV are present. Pt. displays evidence of frustration and confusion. With a calming presence and pastoral care Pt. begins to display evidence of clearer thinking. Re-establish rapport with Pt. and family. Prayed for Pt. Pt. verbalized gratitude for the spiritual care visit and requested that this janitor head return.
--- NOTE | 2021-10-27 17:13 | NUR ---
SHIFT SUMMARY PATIENT IS ALERT AND ORIENTED TO SELF AND FAMILY. PATIENT HAS OCCASIONALLY GOTTEN VERBALLY AGRESSIVE. MEDICATED FOR AGRESSION ONCE THIS SHIFT. PATIENT HAS DIETER AND 4 SIDE RAIL RESTRAINTS IN PLACE, DOCUMENTATION Q2. PATIENT HAS HAD NO ACUTE EVENTS THIS SHIFT. VITAL SIGNS REVIEWED. BED IN LOCKED AND LOWEST POSITION. CALL LIGHT IN PLACE. WILL MONITOR UNTIL SHIFT CHANGE.
--- NOTE | 2021-10-28 04:22 | NUR ---
SHIFT SUMMARY A/O TO SELF, IMPULSIVE AND AGITATED T/O THE NIGHT. DIETER IN PLACE FOR SAFETY. 1P ASSIST WITH FWW AND GB. RESTLESS AND ATTEMPTING TO GET OOB. VSS, NO ACUTE CHANGES AT THIS TIME. BED IN LOWEST POSITION WITH CALL LIGHT IN REACH. WILL CONTINUE TO MONITOR AND REPORT TO ONCOMING RN.
--- NOTE | 2021-10-28 17:45 | NUR ---
SHIFT SUMMARY PATIENT IS ALERT AND ORIENTED TO SELF. PATIENT HAS BEEN IMPULSIVE AND REMOVED DIETER ONCE THIS SHIFT. PATIENT IS A ONE PERSON ASSIST TO BATHROOM. PATIENT HAS HAD NO ACUTE EVENTS THIS SHIFT. VITAL SIGNS REVIEWED. NIGHT MEDICATIONS WERE UPDATED FOR AND . PATIENT HAS NOT COMPLAINED OF PAIN, NAUSEA, SOB OR VOMITTING THIS SHIFT. BED IN LOCKED AND LOWEST POSITION. CALL LIGHT IN PLACE. WILL MONITOR UNTIL SHIFT CHANGE.
--- NOTE | 2021-10-28 18:07 | NUR ---
Long conversation with patient. He was able to track most of the conversation. Will confirm some of the details with his . Pt denies headache but states he gets them sometimes. He does have ringing in his ears. 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 he has new hearing aids but has not been able to go to [place] to get fitted. He gets frustrated with his worsening hearing and vision. He states that not to long ago he had a couple aof falls and on the first one hit his head really hard and could not get off the floor. He states EMS came out and helped him up. He feels he sould of went to hospital. He talked about getting old and his fears of getting hurt. He worrie that he is loosing his stregth and cannot defend himself if needed. We talked about his memeory and declining function. He states he struggles with sleep. Discussed his worsening confussion at night and that he needs to take the seroquel so he can be more alet and functional during the day and enjoy his grand kids. He spoke with one of them on the phone today and it gave him great tiana. Concern for other underlying neurological conditions. Will see if his family has some hearing aids or he has forgot he has some.. Will continue theraputic visits. Pt expteme fall risk will ask for sign on door for startle reponse.
--- NOTE | 2021-10-29 05:50 | NUR ---
PT HAS BEEN CONFUSED, BUT CAN ASK FOR SOME NEEDS. HE REMAINS IN A DIETER VEST AND 4 RAILS FOR SAFETY WITH THE ORDER BEING RENEWED AT MIDNIGHT. HE WAS REPOSITIONED FREQUENTLY. HE DID PULL HIS IV AND IT WAS APPROVED TO LEAVE IT OUT. THE BED IS IN THE LOWEST [id number] AND ALARM IS SET FOR SAFETY.
--- NOTE | 2021-10-29 06:21 | NUR ---
SHIF SUMMARY: PT IS A/OX SELF/FAMILY. HE REMAINS IN A DIETER VEST AND 4 RAILS FOR SAFETY. THE ORDER WAS RENEWEX AT 2100. THE PT IS ABLE TO TAKE MEDS WHOLE WITH APPLESAUCE. THERE ARE NO OTHER CHANGES TO REPORT THIS SHIFT.
--- NOTE | 2021-10-29 08:57 | NUR ---
PT AWAKE IN BED AT THIS TIME, EATING BREAKFAST PLEASANT AND COOPERATIVE. HE IS NOT ATTEMPTING TO GET OOB. RE-ORIENTED PT TO CALL LIGHT AND SITUATION. PT VU. PT TAKEN OUT OF RESTRAINTS AT THIS TIME.
--- NOTE | 2021-10-29 14:57 | NUR ---
Spiritual Care Visit. Pt. is alone and sitting in a chair. Pt. welcomes my visit. Pt. is pleasant today and rapport is quickly re-established. Pt. asked many questions about decisions the familiy is making. The Pt. verbalizes his desire to be able to do more in this life. Listen theraputicaly and give pastoral counseling case manager and encouragement. Consider issues of michael and belief. Pt. displays evidence of enagaement and agreement. Prayed with Pt. Pt. verbalized genuinely his gratitude for the spiritual care visit.
--- NOTE | 2021-10-29 17:23 | NUR ---
SHIFT SUMMARY: CARMENCITA IS A/O X 3, ONE PERSON ASSIST WITH GB/WALKER IN ROOM FOR TRANSFERS. CARMENCITA WORKED WITH PT/OT TODAY AND DID WELL. HE HAS BEEN OUT OF RESTRAINTS SINCE 830 AM AND HAS NO AGGRESSION, S/S OF AGITATION OR CONFUSION. HE HAS BEEN UP TO CHAIR MOST OF THE DAY. HE VISITED CALMLY WITH FAMILY AND HEDIS REVIEW NURSE. PT DID HAVE SOME PAIN IN HIS KNEES POST PT EXERCISES AND MEDICATED WITH TYLENOL WHICH WAS EFFECTIVE IN TREATING HIS PAIN. PT HAS BEEN USING HIS LAPTOP IN HIS ROOM AND WATCHING TV WITH FAMILY IN THE ROOM THIS AFTERNOON. PT HAS NO CONCERNS OR COMPLAINTS AT THIS TIME.
--- NOTE | 2021-10-30 04:30 | NUR ---
SHIFT SUMMARY: PT IS A/OX2-3. HE DID VERY WELL THIS NOC SHIFT. HE DID NOT NEED RESTRAINTS AND WAS FAIRLY RESTFUL THROUGOUT THE SHIFT. HE WAS REPOSITIONED FREQUENTLY. HE IS HAVING C/O RT KNEE PAIN AND PRN TYLENOL IS HELPING MANAGE THE PAIN. THE BED IS IN THE LOWEST POSITION AND THE ALARM IS SET FOR SAFETY.
--- NOTE | 2021-10-30 16:15 | NUR ---
Spoke with CATALINA Cherry and discussed case. Pt's daughter is inquiring about hospice and would like him assessed for hospice appropriateness. Reviewed chart, visited with Pt, Pt's spouse, and Pt's daughter. Reviewed plan of care and reported that Pt does not appear to meet hospice criteria at this time. Offered therapeutic listening and answered questions. Pt eating well, minimal assist with bathing and dresssing. Pt able A&OX2/3 but able to have meaningful conversation still. Family expresses appreciation. Palliative Care will remain available.
--- NOTE | 2021-10-30 18:37 | NUR ---
SHIFT SUMMMARY- PT ALERT AND ORIENTED TO FAMILY AND SELF, A LITTLE FORGETFUL AND IMPULSIVE. NO IV ACCESS NEEDED. PT CURRENTLY IN BED, CALL LIGHT IN REACH NO S&S OF DISTRESS NOTED WILL CTM AND PASS ON TO NIGHT RN IN REPORT.
--- NOTE | 2021-10-31 06:02 | NUR ---
SUAMMARY PT DID BECOME MORE CONFUSED DURING THE NIGHT. PT HAS BEEN VOIDING WELL. PT HAS COMPLAINED OF RIGHT HIP/ LEG DISCOMFORT. PT TX W/ APAP WITH SOME RELIEF. PT CURRENTLY SLEEPING COMFORTABLY. CALL LIGHT IN REACH AND BED ALARM ON.
--- NOTE | 2021-10-31 16:52 | NUR ---
SHIFT SUMMARY- PT VSS. PT APPETITE GOOD. NO C/O PAIN DURING SHIFT. PT UP IN CHAIR DURING MOST OF SHIFT. FAMILY AT BEDSIDE MOST OF AFTERNOON. PT A&O X3, NO CONFUSION NOTED DURING SHIFT. PT RESTING COMFORTFULLY WITH CALL LIGHT IN REACH.
--- NOTE | 2021-10-31 17:37 | NUR ---
VOIDING: PT VOIDED @1000 IN [place]. PT THEN ATTEMPTED TO VOID AROUND 1300, UNSUCCESSFUL. AT 1700 PT DID VOID 500. BLADDER SCAN READ 265 @1730. WILL CONTINUE TO MONITOR AND CATH PT IF OVER 350 ORDERED.
--- NOTE | 2021-11-01 04:28 | NUR ---
PT IS A/OX3. HE DID HAVE C/O PAIN IN HIS RIGHT LEG/HIP AND RECEIVED 325 MG OF TYLENOL. THE PT WAS CONTINENT THROUGHOUT THE SHIFT, USING THE URINAL. HE TAKES HIS MEDS WHOLE WITH H20. HE IS ABLE TO MOVE HIMSELF INDEPENDENTLY IN BED, OTHERWISE HE'S A 2 PA W/ GAIT AND FWW TO THE CHAIR. BED ALARM IS SET FOR SAFETY AND WE'LL CONTINUE TO MONITOR.
--- NOTE | 2021-11-01 16:10 | NUR ---
PT C/O FEELING CONSTIPATED. GAVE PT MOM @1200. PT ATTEMPTED TO VOID STOOL 2 MORE TIMES WITHOUT RESULTS. PRUNE JUICE, APPLEJUICE, AND BUTTER OFFERED, WILL CONTINUE TO MONITOR.
--- NOTE | 2021-11-01 17:24 | NUR ---
SHIFT SUMMARY- PT VSS. PT APPETITE GOOD. PT VOIDED OFTEN THROUGHOUT SHIFT 1000 OUT. PT AMBULATED TO VOID SEVERAL TIMES TODAY. PT WITH FAMILY IN ROOM. PT C/O CONSTIPATION DURING SHIFT, TREATED ACCORDINGLY, SEE EMAR. WILL CONTINUE TO MONITOR, CALL LIGHT IN REACH.
--- NOTE | 2021-11-02 03:51 | NUR ---
SHIFT SUMMARY PT IS PLEASANT AND COOPERATIVE. PT HAS HAD NO COMPLAINTS, AND STS THAT HE IS FEELING BETTER. PT HAS BEEN SLEEPING MOST OF THE NIGHT, WAKING TO USE THE RESTROOM WITH THE HELP OF THE RUG CLEANER HELPER. PT DOES SEEM A LITTLE BIT MORE CONFUSED DURING THE NIGHT HOURS THAN DURING THE DAY OR EVENING, BUT IS STILL PLEASANT AND DIRECTABLE. CALL LIGHT IS WITHIN PT REACH.
--- NOTE | 2021-11-02 09:00 | NUR ---
pt ambulated out in the [place] with PT, he is a/ox 2 to 3, can hold a conversation, but is forgetful, and can be impulsive, pleasant and cooperative with care, follows commands well, denies pain, lungs are clear t/o, resp even and unlabored, no cough noted, hrr, no edema noted, ppp+1, cap refill <3sec, vs stable, afebrile, btx4, abd round soft nontender, voids without diff, reports reg bm's, skin c/w/d, maew, cesar, call light in reach.
--- NOTE | 2021-11-02 11:32 | NUR ---
Pt is likely discharging home soon, as his behaviors have improved significantly with medication changes. AIM Palliative program referral placed, as pt and his would both benefit from this service.
--- NOTE | 2021-11-02 18:45 | NUR ---
pt has been in his chair all day, family in to visit, pt has remained calm and cooperative all day, but is very forgetful and a bit confused, no acute changes this shift. call light in reach.
--- NOTE | 2021-11-03 04:38 | NUR ---
SUMMARY: PT BEGAN SHIFT MORE ORIENTED W/ABILITY TO SPECIFY NEEDS AND HE WAS ASSISTED TO CALL HIS "OF 46 YEARS" TO "SAY GOOD NIGHT". HE WAS ABLE TO COMMUNICATE APPROPRIATELY BUT BECAME MORE CONFUSED T/O NOCTE W/NONSENSICAL SPEECH AND RESTLESSNESS OBSERVED. HE ADMITTED TO "MOVING AROUND A LOT" AND "INABILITY TO GET COMFORTABLE D/T HIP PAIN". PRN SEROQUEL AND TYELNOL WERE RECIEVED FOR SEEMINGLY GOOD EFFECT. HE WAS ABLE TO SLEEP AND AWAKE FOR URINAL ASSIST BUT SETTLED AGAIN VERY QUICKLY AND DENIED ADDITIONAL PAIN COMPLAINTS. BED ALARM AND CAMERA ARE ON FOR IMPULSIVITY AND FORGETFULLNESS. NO ACUTE CHANGES, VSS/AFEBRILE. WCTM AND REPORT TO DAY RN.
--- NOTE | 2021-11-03 17:02 | NUR ---
Spiritual Care Visit. Pt. is sitting up in chair and welcomes my visit. Pt. is very unsetled about his uncertain prognosis and discharge. With a calming presence normalize the Pt. experience, and through theraputic lisitening allow Pt. to verbalize his concerns. Pt. displays evidence of reduced stress and increased trust. Facilitate a lengthy life review focusing on the creative interests of the Pt. The Pt. displays evidence of fond memories and tiana. Great rapport is nurtured. Gibson for the Pt. Pt. verbalizes gratitude for the spiritual care visit.
--- NOTE | 2021-11-03 18:32 | NUR ---
SHIFT SUMMARY PT IN CHAIR MOST OF THE DAY. HAS BEEN PLEASANT AND COOPERATIVE. ABLE TO ANSWER MOST QUESTIONS APPROPRIATELY. HAS DENIED PAIN OR NAUSEA WHEN ASKED. 1 PERSON ASSIST WITH TRANSFERS AND AMBULATING. IN TO VISIT FOR SHORT TIME THIS AFTERNOON.
--- NOTE | 2021-11-04 05:34 | NUR ---
SUMMARY: PT A/O X2-3, IS PLEASANT AND COOPERATIVE W/CARE AND SPECIFIES NEEDS WHEN STAFF IN ROOM. BED ALARM IS ON FOR FALL RISK AND IMPULSIVITY. HE'S UP W/SBA TO TOILET AND USED URINAL AT EOB, ATTENDS CHANGED PRN. TYLENOL RECIEVED FOR ADEQUATE RELIEF OF HIP/KNEE PAIN. NO ACUTE CHANGES, VSS/AFEBRILE. WCTM AND REPORT TO DAY RN.
[2021-11-04] MEDS ORDERED: LOSA50 PO (14:15)
[2021-11-04] MEDS ORDERED: Celexa20 MG PO (14:15)
[2021-11-04] MEDS ORDERED: QUET100 PO (14:15)
--- NOTE | 2021-11-04 14:53 | NUR ---
DISCHARGE INSTRUCTIONS COMPLETED AND DISCUSSED WITH GRANDSON WITH HIM EXPRESSING UNDERSTANDING. TO [facility] VIA W/C.
--- NOTE | 2021-11-05 21:43 | NUR ---
this science writer in pt chart to find info about discharge meds for family, Med list was refaxed to [facility] 11/05/21 @ 0539. Jeri, granddaughter was notified that perscriptions were refaxed, and to check with [facility] in the am.
[2022-01-13] MEDS ORDERED: CEFD300 PO (02:20)
[2022-01-13] MEDS ORDERED: ONDA4ODT MM (02:20)
[2022-01-13] MEDS ORDERED: FAMO20 PO (02:20)
[2022-01-13] MEDS ORDERED: ALMACONE SUSPE355 ML PO (02:20)
== END 2021-11-04 14:48 | disposition home or self-care (01) | DRG 57 ==
LOC: ER 00:38 → MEDS 06:21 → ERHOLD 06:21 → MEDS 17:10
PROVIDERS: Internal Medicine; Student in an Organized Health Care Education/Training Program; ADMIT Internal Medicine
DX: G30.9 Alzheimer's disease, unspecified (principal); F02.81 Dementia in other diseases classified elsewhere, unspecified severity, with behavioral disturbance; I48.20 Chronic atrial fibrillation, unspecified; G93.49 Other encephalopathy; Z88.8 Allergy status to other drugs, medicaments and biological substances; Z88.1 Allergy status to other antibiotic agents; Z88.0 Allergy status to penicillin; J45.909 Unspecified asthma, uncomplicated; Z66 Do not resuscitate; M10.9 Gout, unspecified; Z79.899 Other long term (current) drug therapy; E11.9 Type 2 diabetes mellitus without complications; I10 Essential (primary) hypertension; G47.30 Sleep apnea, unspecified; E87.6 Hypokalemia; Z98.49 Cataract extraction status, unspecified eye; Z98.890 Other specified postprocedural states; E03.9 Hypothyroidism, unspecified; N40.0 Benign prostatic hyperplasia without lower urinary tract symptoms; K21.9 Gastro-esophageal reflux disease without esophagitis; E80.6 Other disorders of bilirubin metabolism; R00.1 Bradycardia, unspecified; I25.2 Old myocardial infarction; J44.9 Chronic obstructive pulmonary disease, unspecified
CPT/HCPCS: 36415; 70450; 80053; 81003; 82947; 84439; 84443; 85025; 93005; 93010; 97110; 97112; 97116; 97162; 97166; 97530; 97535; 99285-25; A9270; C9113; J1650